=== PATIENT | female | born 1935 | race Caucasian/White ===

== ENCOUNTER 2018-03-01 08:45 | Day surgery (SDC) | payer OTHER ==
[2018-02-24 16:28] VITALS: BMI 21.2
[2018-03-01] MEDS ORDERED: DEXAMETHASONE SOD PHOSPHATE 4 MG/1 ML VIAL ONE (09:06)
[2018-03-01] MEDS ORDERED: ONDANSETRON 4 MG/2 ML VIAL ONE (09:06)
[2018-03-01] MEDS ORDERED: PROPOFOL 20 ML ONE ×2 (09:06→12:20)
[2018-03-01] MEDS ORDERED: ceFAZolin SODIUM 1 GM VIAL ONE (09:06)
[2018-03-01] MEDS ORDERED: MIDAZOLAM HCL 2 MG/2 ML SINGLE DOSE VIAL ONE (09:06)
[2018-03-01] MEDS ORDERED: ERYTHROMYCIN 0.5% OPHTHALMIC OINTMENT 3.5 GM TUBE ONE (11:25)
[2018-03-01] MEDS ORDERED: TETRACAINE 0.5% OPHTH SOLN 2 ML BOTTLE ONE (11:25)
[2018-03-01] MEDS ORDERED: POVIDONE-IODINE 5% OPHTHALMIC PREP 30 ML SOLUTION ONE (11:25)
[2018-03-01] MEDS ORDERED: LIDOCAINE 1%/EPI 1:100000 (20 ML MULTI DOSE VIAL) ONE (11:31)
[2018-03-01] MEDS ORDERED: oxyCODONE HCL 5 MG TABLET PO PRN (12:43)
[2018-03-01] MEDS ORDERED: ONDANSETRON 4 MG/2 ML VIAL IVPUSH PRN (12:43)
[2018-03-01] MEDS ORDERED: LACTATED RINGERS SOLUTION 1,000 ML IV SCH (12:45)
--- NOTE | 2018-03-01 14:03 | OP ---
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 PROCEDURE: 1. Lateral tarsal strip, left lower lid. 2. Conjunctivoplasty with punctal and medial lid inversion, left lower lid. SURGEON: Divine Mota MD ANESTHESIA: LMA. COMPLICATIONS: None. ESTIMATED BLOOD LOSS: 5 to 10 mL. OPERATIVE REPORT: Patient brought to the operating room, placed on the operating room table, vital signs monitored by Anesthesia. Tetracaine was placed in both eyes. The lateral canthal line was marked in left lateral canthus. After intravenous sedation was given and a timeout was performed, a 50/50 mixture of 2% Xylocaine and 1:100,000 epinephrine and 0.5% Marcaine was injected in the lateral canthus down to periosteum, lateral third of the upper and lower lid, and subconjunctivally in the nasal portion of the left lower lid for a total of 2 to 3 mL. The patient was prepped and draped in sterile fashion, exposing both eyes. The right eye was taped closed with a Steri-Strip. A lateral canthal incision was made in the left lateral canthus with a 15 blade, carried down to periosteum. Ward needle was used for hemostasis. Antibiotic irrigation was used throughout the case. A Ward needle was used to horizontally bisect the left canthal tendon and to release the inferior rosie of the left canthal tendon from the orbital rim. The lid was overlapped at the orbital rim, marked with a sterile marking pen, divided into an anterior and posterior lamella. The anterior lamella was excised, the posterior lamella was denuded of epithelium posteriorly and superiorly, and then it was attached to the orbital rim with a double-armed 5-0 Prolene suture reinforced with two 6-0 Vicryl lasso sutures. These were not tied at this point, it was just passed through the orbital rim with the appropriate position. Now the lid was everted nasally and with subpunctal yovani conjunctival retractor, this was excised and a double-armed 5-0 Prolene was used in back-end fashion to grab the inferior retractors in a mattress fashion, grabbing the superior tarsal conjunctiva straddling the punctum and then exiting through the full-thickness eyelid nasally on the anterior surface of the eyelid, and this was subsequently tied. The lateral canthal angle was reformed with a 5-0 chromic buried through the lou line of the upper and lower lid. The Prolene was now tied, attaching the tarsal strip to the orbital rim. The excess tarsal strip was overlapped over Prolene and tied with a 5-0 chromic. The subcuticular tissues were closed with 5-0 chromic and the skin was closed with interrupted 6-0 plain suture in plastic technique. The medial 5-0 chromic suture was tied now, inverting the punctum. There was good position of the margin against the eyelid and the lateral canthus was in good position. The lashes, it should be noted, due to the cicatricial changes in the margin, were somewhat elevated but not in any way threatening trichiasis. was placed in the eye and on the sutures of the nasal eyelid and left lower lid, and the patient was taken to the recovery room in stable condition. DIVINE MOTA M.D. [id number]
[2018-03-01 14:50] VITALS: BP 142/83; PULSE 60; TEMP 97.9
== END 2018-03-01 14:15 | disposition home or self-care (01) ==
LOC: FASU 08:45
PROVIDERS: ATTEND Ophthalmology
PROC: 08SR0ZZ Reposition Left Lower Eyelid, Open Approach (ICD-10-PCS; principal; 2018-03-01 12:05)
DX: H02.135 Senile ectropion of left lower eyelid (principal)